=== PATIENT | male | born 1955 | race African-American/Black ===

== ENCOUNTER 2017-07-29 18:35 | Observation (INO) | payer BC ==
[~2017-07-29] VITALS: Ht 185.4 cm; Wt 114.1 kg
[~2017-07-29 18:35] MED LIST: AMLODIPINE BESY10 MG PO; ASPIR-LOW81 MG PO; DOXAZOSIN MESYLA2 MG PO; GEMFIBROZIL600 MG PO; LISINOPRIL20 MG PO; MEN'S MULTI-VI1 EACH PO; METFORMIN HCL500 MG PO; NAPROSYN500 MG PO; NORCO 5/3251 TABLET PO; VITAMIN D31000 UNIT PO
[2017-07-29 19:29] LABS: HEMATOCRIT 46.9 % (38.0-50.0); MCH 30.5 PG (29.0-34.0); MCHC 33.3 G/DL (30.0-36.0); MCV 91.8 FL (86-99); MEAN PLAT.VOLUME 10.5 uM^3 (9.0-12.4); PLATELET COUNT 250 K/uL (156-360); RBC DIS.WIDTH-CV 13.5 % (11.8-14.6); RBC DIS.WIDTH-SD 45.7 % (39-53); RED BLOOD COUNT 5.11 M/uL (4.00-5.50)
[2017-07-29 19:50] LABS: CHLORIDE 107 mEq/L (99-109); POTASSIUM 4.3 mEq/L (3.7-5.4); SODIUM 140 mEq/L (136-147); TROP-I INTERPRETATION NEGATIVE; TROPONIN-I < 0.01 ng/mL (0.0-0.30)
[2017-07-29 19:52] LABS: GLUCOSE 112 mg/dL (70-99)
[2017-07-29 19:53] LABS: ANION GAP 9 MEQ/L (2-14)
[2017-07-29 19:56] LABS: GFR ESTIMATE (CALCULATED) > 59 mL/min/ (58.99-99999); UREA NITROGEN (BUN) 23 mg/dL (9-23)
[2017-07-29] MEDS ORDERED: ERGOCALCIF50000 UNIT PO (23:36)
[2017-07-29] MEDS ORDERED: ATORVASTATIN CA40 MG PO (23:41)
[2017-07-30 02:45] LABS: TROP-I INTERPRETATION NEGATIVE; TROPONIN-I < 0.01 ng/mL (0.0-0.30)
[2017-07-30 02:50] VITALS: BP 130/83
[2017-07-30 08:15] VITALS: BP 127/66
[2017-07-30 09:10] LABS: ANION GAP 7 MEQ/L (2-14); CHLORIDE 108 MEQ/L (99-109); GFR ESTIMATE (CALCULATED) > 59 mL/min/ (58.99-99999); GLUCOSE 142 mg/dL (70-99); HDL CHOLESTEROL 34 MG/DL (Desirable>=40); LDL CHOLESTEROL 45 mg/dL (Desirable<100); NON-HDL CHOLESTEROL 73 mg/dL (Desirable<160); POTASSIUM 4.2 MEQ/L (3.7-5.4); SAMPLE HEMOLYSIS CHECK 0; SAMPLE ICTERIC CHECK 0; SAMPLE LIPEMIA CHECK 0; SODIUM 140 MEQ/L (136-147); TOTAL CHOLESTEROL 107 mg/dL (Desirable<200); TRIGLYCERIDES 138 MG/DL (Normal: <150); UREA NITROGEN (BUN) 18 mg/dL (9-23)
[2017-07-30 10:00] LABS: TROP-I INTERPRETATION NEGATIVE; TROPONIN-I < 0.01 ng/mL (0.0-0.30)
[2017-07-30 10:52] LABS: D-DIMER ELISA < 150.00 ng/mLDDU (<230)
== END 2017-07-30 11:15 | disposition home or self-care (01) ==
LOC: EME 18:35 → ENPENDDIS 07-30 → EDOF 07-30 01:22 → ENRESERV 07-30 01:23 → 5WEST 07-30 02:33
PROVIDERS: Hospitalist; Physician Assistant
DX: R07.89 Other chest pain (principal); N17.9 Acute kidney failure, unspecified; E78.5 Hyperlipidemia, unspecified; I10 Essential (primary) hypertension; E11.9 Type 2 diabetes mellitus without complications; F17.200 Nicotine dependence, unspecified, uncomplicated; Z79.84 Long term (current) use of oral hypoglycemic drugs; Z83.3 Family history of diabetes mellitus
CPT/HCPCS: 71020; 80048; 80061; 84484; 85027; 85379; 93005; 93306; 99281; 99285; G0378; J1885; J7030